=== PATIENT | female | born 1995 | race Caucasian/White ===

== ENCOUNTER → 2019-12-29 07:34 | Outpatient (CLI) | payer OTHER, SELFPAY | PROVIDERS: PCP Nurse Practitioner Family; Referring Provider Internal Medicine; Visit Provider Internal Medicine | DX: Z23 Encounter for immunization (principal) | CPT/HCPCS: 90471; 90686 ==

== ENCOUNTER → 2020-04-08 07:59 | Outpatient (CLI) | payer OTHER, SELFPAY ==
[2020-04-08] MEDS: COVID-19 VACC #1, MRNA(MOD) 100 MCG/0.5 ML VIAL IM (08:04)
== END ==
PROVIDERS: PCP Nurse Practitioner Family; Visit Provider Internal Medicine
DX: Z23 Encounter for immunization (principal)
CPT/HCPCS: 0011A; 91301

== ENCOUNTER → 2020-05-06 15:16 | Outpatient (CLI) | payer OTHER, SELFPAY ==
[2020-05-06] MEDS: COVID-19 VACC #2, MRNA(MOD) 100 MCG/0.5 ML VIAL IM (15:25)
== END ==
PROVIDERS: PCP Nurse Practitioner Family; Visit Provider Internal Medicine
DX: Z23 Encounter for immunization (principal)
CPT/HCPCS: 0012A; 91301

== ENCOUNTER → 2020-10-25 12:08 | Outpatient (CLI) | payer OTHER, SELFPAY ==
[2020-10-25 12:43] LABS: Hematocrit 43.3 % (36-46); Hemoglobin 14.5 g/dL (12.0-16.0); Mean Corpuscular HGB Conc 33.4 % (30-36); Mean Corpuscular Hemoglobin 30.9 PG (26-34); Mean Corpuscular Volume 92.5 fL (80-100); Platelet Count 166 X10^3/uL (150-400); Red Blood Cell Count 4.68 X10^6/uL (4.0-5.2); Red Cell Distribution Width 12.5 % (11.6-14.8); White Blood Cell Count 4.5 X10^3/uL (4.5-11.0)
[2020-10-25 13:04] LABS: HEMOLYSIS < 15 (0-50); Iron 150 ug/dL (37-170)
[2020-10-25 13:10] LABS: Alanine Aminotransferase 17 IU/L (<35); Albumin 4.5 g/dL (3.5-5.0); Albumin Globulin Ratio 1.4 (1.0-2.8); Alkaline Phosphatase 48 U/L (38-126); Aspartate Aminotransferase 25 IU/L (14-36); BUN Creatinine Ratio 16.9 (6-22); Bilirubin Total 0.5 mg/dL (0.2-1.3); Blood Urea Nitrogen 12 mg/dL (7-17); Carbon Dioxide 25 mmol/L (22-32); Chloride 103 mmol/L (98-107); Cholesterol 202 mg/dL (140-199); Estimated Glomerular Filt Rate > 60.0 mL/min (>60); Globulin 3.3 g/dL (1.7-4.1); Glucose 86 mg/dL (70-100); HEMOLYSIS < 15 (0-50); Potassium 4.5 mmol/L (3.4-5.1); Sodium 138 mmol/L (137-145); Total Protein 7.8 g/dL (6.3-8.2); Triglycerides 99 mg/dL (35-150)
[2020-10-25 13:16] LABS: Percent Iron Saturation 38 % (15-50); Total Iron Binding Capacity 397 ug/dL (265-497); Transferrin 331 mg/dL (206-381)
[2020-10-25 13:17] LABS: HDL Cholesterol 117 mg/dL (40-60); LDL Cholesterol Calculated 65 mg/dL (<100)
[2020-10-25 13:36] LABS: TSH w/ Reflex to FT4 1.02 uIU/mL (0.47-4.68)
[2020-10-25 13:40] LABS: Ferritin 41 ng/mL (6-137)
== END ==
PROVIDERS: PCP Registered Nurse Diabetes Educator; Referring Provider Registered Nurse Diabetes Educator; Visit Provider Registered Nurse Diabetes Educator
DX: L65.0 Telogen effluvium (principal); R53.83 Other fatigue
CPT/HCPCS: 36415; 80053; 80061; 82306; 82728; 83540; 83550; 84443; 85027

== ENCOUNTER → 2021-01-10 16:38 | Outpatient (CLI) | payer OTHER, SELFPAY | PROVIDERS: PCP Registered Nurse Diabetes Educator; Referring Provider Internal Medicine; Visit Provider Internal Medicine | DX: Z23 Encounter for immunization (principal) | CPT/HCPCS: 90471; 90686 ==

== ENCOUNTER → 2022-01-01 09:41 | Outpatient (CLI) | payer OTHER, SELFPAY ==
--- NOTE | 2022-01-01 09:42 | DI.US.S_ITS ---
PROCEDURE: US OB <= 14 WEEKS FETUS INDICATIONS: DATING OUTSIDE/PRIOR DATING DATA: Last menstrual period (LMP): 11/03/2021 LMP-based estimated date of delivery (BOBY): 08/10/2022 First dating scan (date and location): 01/01/2022 Estimated date of delivery (BOBY) from first dating scan: 08/14/2022 TECHNIQUE: Real-time scanning was performed of the fetus and maternal pelvic organs, with image documentation. Endovaginal scanning was also performed to better visualize the fetus and maternal ovaries. COMPARISON: None. FINDINGS: Embryo: Intrauterine gestational sac is seen with yolk sac and pole. Eek-rump length is 1.5 cm, consistent with an estimated gestational age of 7 weeks 6 days. There is a small perigestational sac hemorrhage measuring 1.7 x 1.0 x 0.6 cm. Heart rate: 155 beats per minute Maternal organs: A probable left ovarian corpus luteum cyst is noted. Right ovary is unremarkable. IMPRESSION: 1. Single live intrauterine with estimated gestational age of 7 weeks 6 days, giving an ultrasound BOBY of 08/14/2022. 2. Small perigestational sac hemorrhage measuring up to 1.7 cm. We strive to produce accurate, complete, and clear reports of imaging services. To assist us in improving patient care, this report was composed using standard report templates and voice recognition software. Therefore, it may contain abnormal punctuation, insertions and/or omissions. Occasional wrong-word or sound-alike substitutions may occur. Though we review the report and make efforts to correct it, we do recommend that the report be read carefully in proper context to recognize any text inaccuracies. Dictated by: Parth Reis M.D. on 01/01/2022 at 12:11 Approved by: Parth Ries M.D. on 01/01/2022 at 12:15
== END ==
PROVIDERS: PCP Registered Nurse Diabetes Educator; Referring Provider Family Medicine; Visit Provider Family Medicine
DX: Z34.01 Encounter for supervision of normal first pregnancy, first trimester (principal); Z3A.01 Less than 8 weeks gestation of pregnancy
CPT/HCPCS: 76801; 76817; 76830

== ENCOUNTER → 2022-01-24 12:53 | Outpatient (CLI) | payer OTHER, SELFPAY ==
[2022-01-24 13:30] LABS: Appearance Urine UA SL CLOUDY; Bilirubin Urine UA NEGATIVE (NEGATIVE); Color Urine UA YELLOW; Glucose Urine UA NEGATIVE (Negative); Ketones Urine UA NEGATIVE (NEGATIVE); Leukocyte Esterase Urine UA TRACE (NEGATIVE); Nitrite Urine UA NEGATIVE (Negative); Occult Blood Urine UA 1+ (Negative); Protein Urine UA NEGATIVE (Negative); Specific Gravity Urine UA <=1.005 (1.000-1.035); Urobilinogen Urine UA 0.2 E.U./dL (0.2)
[2022-01-24 13:31] LABS: pH Urine UA 6.5 (4.5-8.0)
[2022-01-24 13:32] LABS: RBC Urine 1-5/HPF (0-5/HPF); WBC Urine 0-1/HPF (0-5/HPF)
[2022-01-24 13:33] LABS: Bacteria Urine None Seen; Culture Indicated Urine Specimen Cultured
[2022-01-24 14:01] LABS: Add Manual Diff / Slide Review NO; Basophils Absolute Auto 0 /uL (0-100); Basophils Percent Auto 0.4 % (0-2); Eosinophils Absolute Auto 300 /uL (0-450); Eosinophils Percent Auto 4.3 % (2-4); Hematocrit 41.9 % (36-46); Hemoglobin 14.1 g/dL (12.0-16.0); Lymphocytes Absolute Auto 1300 /uL (1100-4500); Lymphocytes Percent Auto 18.9 % (25-40); Mean Corpuscular HGB Conc 33.6 % (30-36); Mean Corpuscular Hemoglobin 31.1 PG (26-34); Mean Corpuscular Volume 92.3 fL (80-100); Monocytes Absolute Auto 500 /uL (0-900); Monocytes Percent Auto 7.3 % (3-14); Neutrophils Absolute Auto 4600 /uL (1500-7000); Neutrophils Percent Auto 69.1 % (50-75); Platelet Count 198 X10^3/uL (150-400); Red Blood Cell Count 4.53 X10^6/uL (4.0-5.2); Red Cell Distribution Width 13.3 % (11.6-14.8); White Blood Cell Count 6.7 X10^3/uL (4.5-11.0)
[2022-01-25 11:36] LABS: Varicella IgG Antibody 1142 index (Immune >165)
[2022-01-25 17:28] LABS: Hepatitis B Surface Antigen NEGATIVE s/c (NEGATIVE)
[2022-01-25 17:56] LABS: HIV 1 & 2 Ab/Ag 4th Gen Combo NEGATIVE (NEGATIVE); Hep C Virus Ab w/Reflex Quant NEGATIVE s/c (NEGATIVE)
[2022-01-26 02:36] LABS: RPR Screen Non Reactive (Non Reactive)
== END ==
PROVIDERS: PCP Registered Nurse Diabetes Educator; Referring Provider Family Medicine; Visit Provider Family Medicine
DX: Z34.01 Encounter for supervision of normal first pregnancy, first trimester (principal)
CPT/HCPCS: 36415; 80055; 81003; 81015; 86787; 86803; 86850; 86900; 86901; 87086; 87389